=== PATIENT | male | born 1980 | race Caucasian/White ===

== ENCOUNTER 2024-07-05 04:50 | Emergency (ER) | payer BC ==
[~2024-07-05] VITALS: Ht 175.3 cm; Wt 84.1 kg
[2024-07-05 05:32] LABS: BASO # 0.03 K/mm3 (0.02-0.10); EOS # 0.54 K/mm3 (0.04-0.40); EOS % 5.2 % (0.0-4.0); HEMATOCRIT 50.9 % (42.0-52.0); HEMOGLOBIN 17.1 g/dL (13.5-18.0); LYMPH# 1.06 K/mm3 (1.50-4.00); MEAN CELL VOLUME 92 fl (78-100); MEAN CORPUSCULAR HEMOGLOBIN 31 pg (27-31); MEAN CORPUSCULAR HGB CONC 34 g/dL (33-37); MEAN PLATELET VOLUME 9.1 fl (7.4-10.4); MONO # 0.54 K/mm3 (0.20-0.80); PLATELET COUNT 279 K/mm3 (130-400); RED BLOOD COUNT 5.55 M/mm3 (4.20-5.60); RED CELL DISTRIBUTION WIDTH 12.3 % (11.5-14.5); WHITE BLOOD COUNT 10.3 K/mm3 (4.8-10.8)
[2024-07-05 05:40] LABS: ALBUMIN 4.5 g/dL (3.5-5.0)
[2024-07-05 05:42] LABS: CALCIUM 8.7 mg/dL (8.3-10.5)
[2024-07-05 05:43] LABS: TOTAL PROTEIN 7.2 g/dL (6.4-8.3)
[2024-07-05 05:45] LABS: TOTAL BILIRUBIN 2.4 mg/dL (0.2-1.2)
[2024-07-05 06:00] VITALS: BP 133/102
[2024-07-05] MEDS ORDERED: NS 100 ML IV SCH (06:05)
[2024-07-05] MEDS ORDERED: Iohexol 300 - 100 ML VIAL IV ONE (06:05)
== END 2024-07-05 06:06 | disposition home or self-care (01) ==
LOC: ED 04:50
PROVIDERS: Physician Assistant
DX: R10.31 Right lower quadrant pain (principal); R10.32 Left lower quadrant pain; R19.7 Diarrhea, unspecified; R11.0 Nausea; E80.7 Disorder of bilirubin metabolism, unspecified
CPT/HCPCS: Q9967